=== PATIENT | male | born 1955 | race Caucasian/White ===

== ENCOUNTER 2018-09-13 11:46 | Inpatient (IN) | payer MEDICAID, OTHER ==
[~2018-09-13] VITALS: Ht 175.3 cm; Wt 88.5 kg
[2018-09-13 12:28] LABS: ALBUMIN 4.4 g/dL (3.4-5.0); ANION GAP 10 mmol/L (5-15); CALCIUM 9.2 mg/dL (8.5-10.1); CHLORIDE 103 mmol/L (98-107); CREATININE 1.43 mg/dL (0.7-1.3)
[2018-09-13] MEDS ORDERED: SODIUM CHLORIDE FLUSH 10ML SYR IVF ONE (12:30)
[2018-09-13] MEDS ORDERED: PLEASE ENTER HEIGHT AND WEIGHT MC SCH (12:30)
[2018-09-13 12:36] LABS: MEAN CORPUSCULAR HEMOGLOBIN 29.5 pg (27.5-34.5); MEAN CORPUSCULAR HGB CONC 34.1 g/dL (33.2-36.2); MEAN CORPUSCULAR VOLUME 86.3 fL (81-97); PLATELET COUNT 312 x10^3/uL (130-400); RED CELL DISTRIBUTION WIDTH 14.1 % (9.4-14.8)
[2018-09-13 12:37] LABS: BASOPHILS # (AUTO) 0.05 x10^3/uL (0-0.1); BASOPHILS % (AUTO) 0 % (0-1); EOSINOPHILS # (AUTO) 0.02 x10^3/uL (0-0.4); EOSINOPHILS % (AUTO) 0 % (1-7); LYMPHOCYTES # (AUTO) 1.44 x10^3/uL (1-3.4); LYMPHOCYTES % (AUTO) 11 % (22-44); MONOCYTES # (AUTO) 0.59 x10^3/uL (0.2-0.8); MONOCYTES % (AUTO) 5 % (2-9); NEUTROPHILS % (AUTO) 84 % (42-75)
[2018-09-13 12:38] LABS: MD NO
[2018-09-13] MEDS ORDERED: ONDANSETRON 2MG/ML, 2ML ONE (13:29)
[2018-09-13] MEDS ORDERED: MORPHINE SULFATE 4 MG/ML, 1ML ONE ×2 (13:29→15:00)
[2018-09-13] MEDS ORDERED: SODIUM CHLORIDE 0.9% 1,000 ML IV ONE (13:31)
[2018-09-13 13:38] LABS: MICROSCOPIC NOT IND
[2018-09-13] MEDS: MORPHINE SULFATE 4 MG/ML, 1ML IVPush PRN ×2 (13:40→15:03)
[2018-09-13 13:47] LABS: CULTURE INDICATED? NO
[2018-09-13] MEDS ORDERED: PRAV20TA2 PO (13:52)
[2018-09-13] MEDS ORDERED: CHOL400C PO (13:52)
[2018-09-13] MEDS ORDERED: OMEP-110 PO (13:52)
[2018-09-13] MEDS ORDERED: HYDR25TA6 PO (13:52)
[2018-09-13] MEDS ORDERED: LOSA25TA6 PO (13:52)
[2018-09-13] MEDS ORDERED: ALPR-475 PO (13:52)
[2018-09-13] MEDS ORDERED: TAMS0.4C2 PO (13:52)
[2018-09-13] MEDS ORDERED: MESA1.2T PO (13:52)
[2018-09-13] MEDS ORDERED: BUPR200T PO (13:52)
[2018-09-13] MEDS ORDERED: ONDANSETRON 2MG/ML, 2ML IVPush ONE (14:00)
[2018-09-13] MEDS ORDERED: OMNIPAQUE 350 MG/ML, 100ML BOTTLE ONE (14:15)
[2018-09-13] MEDS ORDERED: SODIUM CHLORIDE 0.9%, 500ML IVBOLUS ONE (14:30)
[2018-09-13] MEDS ORDERED: CEFTRIAXONE PMX 1GM/50ML 50 ML ONE (14:47)
[2018-09-13] MEDS ORDERED: METRONIDAZOLE PMX 500MG/100ML 100 ML ONE (15:00)
[2018-09-13] MEDS ORDERED: CEFTRIAXONE PMX 1GM/50ML 50 ML IV ONE ×2 (15:00→16:02)
[2018-09-13] MEDS ORDERED: METRONIDAZOLE PMX 500MG/100ML 100 ML IV ONE (15:30)
[2018-09-13] MEDS ORDERED: hydrALAzine 20 MG/ML, 1ML IVPush PRN (16:00)
[2018-09-13 16:25] VITALS: BP 129/83
[2018-09-13] MEDS: SODIUM CHLORIDE 0.9% 1,000 ML IV SCH ×2 (17:42→23:06)
[2018-09-13] MEDS: morphine SULFATE 10 MG/ML, 1ML IVPush PRN ×2 (17:43→20:41)
[2018-09-13 19:32] VITALS: BP 114/69
[2018-09-13] MEDS: PANTOPRAZOLE 40 MG IV IVPush SCH (20:13)
[2018-09-13] MEDS: ONDANSETRON 2MG/ML, 2ML IVPush PRN (23:06)
[2018-09-13] MEDS: METRONIDAZOLE PMX 500MG/100ML 100 ML IV SCH (23:06)
[2018-09-14] MEDS: morphine SULFATE 10 MG/ML, 1ML IVPush PRN ×2 (00:11→03:12)
[2018-09-14 02:28] VITALS: BP 108/68
[2018-09-14 04:53] LABS: BASOPHILS # (AUTO) 0.04 x10^3/uL (0-0.1); BASOPHILS % (AUTO) 0 % (0-1); EOSINOPHILS # (AUTO) 0.03 x10^3/uL (0-0.4); EOSINOPHILS % (AUTO) 0 % (1-7); LYMPHOCYTES # (AUTO) 1.29 x10^3/uL (1-3.4); LYMPHOCYTES % (AUTO) 13 % (22-44); MD NO; MEAN CORPUSCULAR HEMOGLOBIN 29.7 pg (27.5-34.5); MEAN CORPUSCULAR HGB CONC 34.6 g/dL (33.2-36.2); MEAN CORPUSCULAR VOLUME 85.9 fL (81-97); MEAN PLATELET VOLUME 6.9 fL (7.4-10.4); MONOCYTES # (AUTO) 0.75 x10^3/uL (0.2-0.8); MONOCYTES % (AUTO) 8 % (2-9); NEUTROPHILS # (AUTO) 7.65 x10^3/uL (1.8-6.8); NEUTROPHILS % (AUTO) 78 % (42-75); PLATELET COUNT 259 x10^3/uL (130-400); RED BLOOD COUNT 4.39 x10^6/uL (4.38-5.82); RED CELL DISTRIBUTION WIDTH 14.3 % (9.4-14.8)
[2018-09-14 05:08] LABS: ALBUMIN 3.3 g/dL (3.4-5.0); ANION GAP 7 mmol/L (5-15); CHLORIDE 107 mmol/L (98-107)
[2018-09-14] MEDS: ONDANSETRON 2MG/ML, 2ML IVPush PRN (05:11)
[2018-09-14 05:12] LABS: ALANINE AMINOTRANSFERASE 20 U/L (12-78); ALKALINE PHOSPHATASE 56 U/L (45-117); BILIRUBIN,TOTAL 0.8 mg/dL (0.2-1.0); CREATININE 1.27 mg/dL (0.7-1.3); TOTAL PROTEIN 6.8 g/dL (6.4-8.2)
[2018-09-14] MEDS: SODIUM CHLORIDE 0.9% 1,000 ML IV SCH ×3 (06:34→21:13)
[2018-09-14] MEDS: METRONIDAZOLE PMX 500MG/100ML 100 ML IV SCH ×3 (06:37→23:05)
[2018-09-14 07:58] VITALS: BP 117/67
[2018-09-14] MEDS ORDERED: PROMETHAZINE 25 MG/ML, 1ML IM PRN (08:30)
[2018-09-14] MEDS: PANTOPRAZOLE 40 MG IV IVPush SCH ×2 (08:45→21:13)
[2018-09-14] MEDS: LORazepam 2 MG/ML, 1ML IVPush PRN ×2 (10:01→21:13)
[2018-09-14 13:49] VITALS: BP 116/68
[2018-09-14] MEDS ORDERED: CEFTRIAXONE PMX 2GM/50ML 50 ML IV SCH (16:00)
[2018-09-14 18:45] VITALS: BP 127/73
[2018-09-15] MEDS: SODIUM CHLORIDE 0.9% 1,000 ML IV SCH ×2 (04:58→11:40)
[2018-09-15 05:00] VITALS: BP 118/57
[2018-09-15] MEDS: METRONIDAZOLE PMX 500MG/100ML 100 ML IV SCH (06:24)
[2018-09-15 06:58] VITALS: BP 128/67
[2018-09-15] MEDS: PANTOPRAZOLE 40 MG IV IVPush SCH (09:11)
[2018-09-15] MEDS ORDERED: TRAM50TA2 PO (10:31)
[2018-09-15] MEDS ORDERED: METR500T PO (10:31)
[2018-09-15] MEDS ORDERED: OXYC-302 PO (10:31)
[2018-09-15] MEDS ORDERED: POLY17PO5 PO (10:31)
[2018-09-15] MEDS ORDERED: CEFD300C37 PO (10:31)
[2018-09-15 12:12] VITALS: BP 136/72
== END 2018-09-15 12:40 | disposition home or self-care (01) | DRG 871 ==
LOC: ED 14:39 → EDIP 15:11 → 3NE 15:59 → DCLOUNGE 09-15 12:30
PROVIDERS: ADMIT Internal Medicine; ATTEND Internal Medicine
DX: A41.9 Sepsis, unspecified organism (principal); N17.0 Acute kidney failure with tubular necrosis; K57.32 Diverticulitis of large intestine without perforation or abscess without bleeding; N40.0 Benign prostatic hyperplasia without lower urinary tract symptoms; I10 Essential (primary) hypertension; E78.5 Hyperlipidemia, unspecified; E86.0 Dehydration; E78.00 Pure hypercholesterolemia, unspecified; Z88.8 Allergy status to other drugs, medicaments and biological substances; Z87.891 Personal history of nicotine dependence; Z86.010 Personal history of colon polyps; Z85.828 Personal history of other malignant neoplasm of skin; Z82.49 Family history of ischemic heart disease and other diseases of the circulatory system; Z80.8 Family history of malignant neoplasm of other organs or systems
CPT/HCPCS: 36415; 74177; 80048; 80053; 81003; 82040; 83735; 84100; 85025; 96361; 96365; 96375; 96376; 99285; G0378; J0696; J2405; J2550; Q9967; C9113; J2060; J2270; J7030; J7040

== ENCOUNTER 2018-11-23 05:53 | Inpatient (IN) | payer MEDICARE, OTHER ==
[2018-11-16 08:54] VITALS: BP 121/84
[~2018-11-23] VITALS: Ht 172.7 cm; Wt 88.0 kg
[~2018-11-23 05:53] MED LIST: ALPR-475 PO; BUPR200T PO; CEFD300C37 PO; CHOL400C PO; CIPR500T3 PO; HYDR25TA6 PO; LOSA25TA25 PO; MESA1.2T PO; METR-90 PO; METR500T PO; OMEP-110 PO; OMEP40CA6 PO; OXYC-302 PO; POLY17PO5 PO; PRAV20TA2 PO; PRAV40TA2 PO; TAMS0.4C2 PO; TRAM50TA2 PO; VITAMIN D3 PO
[2018-11-23] MEDS ORDERED: LACTATED RINGERS 1,000 ML IV SCH (06:37)
[2018-11-23] MEDS ORDERED: MIDAZOLAM 1 MG/ML, 2ML ONE (07:18)
[2018-11-23] MEDS ORDERED: FENTANYL PF 250 MCG/5ML ONE (07:18)
[2018-11-23] MEDS ORDERED: CEFOTETAN 2 GM ONE (07:23)
[2018-11-23] MEDS ORDERED: INDOCYANINE GREEN 25 MG VIAL ONE (07:30)
[2018-11-23] MEDS ORDERED: SCOPOLAMINE PATCH, 1.5MG PATCH.TD72 TD ONE ×2 (07:51→10:33)
[2018-11-23] MEDS ORDERED: ACETAMINOPHEN 500 MG TABLET PO ONE (08:00)
[2018-11-23] MEDS ORDERED: PROMETHAZINE 25 MG SUPP PR PRN (08:00)
[2018-11-23] MEDS ORDERED: MEPERIDINE/PF 25MG/0.5ML IVPush PRN (08:00)
[2018-11-23] MEDS ORDERED: hydrALAzine 20 MG/ML, 1ML IV PRN (08:00)
[2018-11-23] MEDS ORDERED: ONDANSETRON 2MG/ML, 2ML IV PRN (08:00)
[2018-11-23] MEDS ORDERED: LABETALOL 5MG/ML, 20ML IV PRN (08:00)
[2018-11-23] MEDS ORDERED: PROMETHAZINE 25 MG/ML, 1ML IM PRN ×2 (08:00)
[2018-11-23] MEDS ORDERED: HALOPERIDOL 5 MG/ML IV PRN (08:00)
[2018-11-23] MEDS ORDERED: PROMETHAZINE 12.5 MG SUPP PR PRN (08:00)
[2018-11-23] MEDS ORDERED: GABAPENTIN 300 MG CAPSULE PO ONE (08:00)
[2018-11-23] MEDS ORDERED: ONDANSETRON ODT 8 MG PO PRN (08:00)
[2018-11-23] MEDS ORDERED: PROMETHAZINE 25 MG/ML, 1ML IV PRN (08:00)
[2018-11-23] MEDS ORDERED: HYDROmorphone 2 MG/ML, 1ML IVPush PRN (08:00)
[2018-11-23] MEDS ORDERED: OXYcodone 5 MG/5 ML ORAL.SOL UDC PO PRN (08:00)
[2018-11-23] MEDS ORDERED: PHENYLEPHRINE 10 MG/ML ONE (08:07)
[2018-11-23] MEDS ORDERED: GLYCOPYRROLATE 0.2MG/1ML, 5ML ONE (09:09)
[2018-11-23] MEDS ORDERED: CEFAZOLIN 1,000 MG ONE (09:09)
[2018-11-23] MEDS ORDERED: ROCURONIUM 10MG/ML,5ML ONE (09:09)
[2018-11-23] MEDS ORDERED: DEXAMETHASONE 4 MG/ML, 1ML ONE (09:09)
[2018-11-23] MEDS ORDERED: PROPOFOL 10 MG/ML, 20ML ONE (09:09)
[2018-11-23] MEDS ORDERED: ONDANSETRON 2MG/ML, 2ML ONE (09:09)
[2018-11-23] MEDS ORDERED: NEOSTIGMINE 1 MG/ML, 10ML ONE (09:09)
[2018-11-23] MEDS ORDERED: OXYcodone 5 MG/5 ML ORAL.SOL UDC ONE (10:20)
[2018-11-23] MEDS ORDERED: FENTANYL PF 100 MCG/2ML ONE (10:27)
[2018-11-23] MEDS: FENTANYL PF 100 MCG/2ML IV PRN ×3 (10:30→10:50)
[2018-11-23] MEDS ORDERED: HALOPERIDOL 5 MG/ML ONE (10:49)
[2018-11-23 12:21] VITALS: BP 141/86
[2018-11-23] MEDS ORDERED: DEXAMETHASONE 4 MG/ML, 1ML IVPush PRN (13:30)
[2018-11-23] MEDS ORDERED: HALOPERIDOL 5 MG/ML IVPush PRN (13:30)
[2018-11-23] MEDS ORDERED: D5%-0.45NACL+KCL 20MEQ 1,000 ML IV SCH (13:30)
[2018-11-23] MEDS ORDERED: TRAZODONE 50MG TABLET PO PRN (13:30)
[2018-11-23] MEDS ORDERED: LORazepam 1MG TABLET PO PRN (13:30)
[2018-11-23] MEDS ORDERED: DIPHENHYDRAMINE 50 MG/ML, 1ML IVPush PRN (13:30)
[2018-11-23] MEDS ORDERED: SCOPOLAMINE PATCH, 1.5MG PATCH.TD72 TD PRN (13:30)
[2018-11-23] MEDS ORDERED: DIPHENHYDRAMINE 25 MG CAPSULE PO PRN (13:30)
[2018-11-23] MEDS ORDERED: CALCIUM CARBONATE 500 MG TAB.CHEW PO PRN (13:30)
[2018-11-23] MEDS: ACETAMINOPHEN 500 MG TABLET PO SCH ×2 (13:59→19:42)
[2018-11-23] MEDS: NICOTINE 21 MG/24 HR PATCH.TD24 TD SCH (14:00)
[2018-11-23] MEDS ORDERED: LORazepam 2 MG/ML, 1ML IVPush PRN (14:30)
[2018-11-23] MEDS: OXYcodone IR 5MG TABLET PO PRN ×3 (14:47→23:26)
[2018-11-23] MEDS: D5%-0.45NACL+KCL 20MEQ 1,000 ML IV SCH (15:05)
[2018-11-23] MEDS: IBUPROFEN 800 MG TABLET PO SCH ×2 (15:35→21:18)
[2018-11-23] MEDS ORDERED: HYDROmorphone 2 MG/ML, 1ML ONE ×3 (15:40→23:16)
[2018-11-23] MEDS: HYDROmorphone 1 MG/ML, 1ML IVPush PRN ×3 (15:43→23:25)
[2018-11-23 19:56] VITALS: BP 145/80
[2018-11-24 01:11] VITALS: BP 140/79
[2018-11-24] MEDS: ACETAMINOPHEN 500 MG TABLET PO SCH ×4 (01:54→20:45)
[2018-11-24 01:56] VITALS: BP 111/65
[2018-11-24] MEDS ORDERED: HYDROmorphone 2 MG/ML, 1ML ONE ×3 (02:31→22:22)
[2018-11-24] MEDS: OXYcodone IR 5MG TABLET PO PRN ×4 (02:38→20:45)
[2018-11-24] MEDS: HYDROmorphone 1 MG/ML, 1ML IVPush PRN ×3 (02:39→22:28)
[2018-11-24 03:54] LABS: ALBUMIN 3.5 g/dL (3.4-5.0); ANION GAP 7 mmol/L (5-15); CALCIUM 8.3 mg/dL (8.5-10.1); CHLORIDE 102 mmol/L (98-107); CREATININE 1.46 mg/dL (0.7-1.3)
[2018-11-24 04:42] LABS: BASOPHILS # (AUTO) 0.06 x10^3/uL (0-0.1); BASOPHILS % (AUTO) 1 % (0-1); EOSINOPHILS % (AUTO) 0 % (1-7); LYMPHOCYTES # (AUTO) 1.07 x10^3/uL (1-3.4); LYMPHOCYTES % (AUTO) 10 % (22-44); MD NO; MEAN CORPUSCULAR HEMOGLOBIN 28.8 pg (27.5-34.5); MEAN CORPUSCULAR HGB CONC 33.7 g/dL (33.2-36.2); MEAN CORPUSCULAR VOLUME 85.4 fL (81-97); MONOCYTES # (AUTO) 1.02 x10^3/uL (0.2-0.8); MONOCYTES % (AUTO) 9 % (2-9); NEUTROPHILS # (AUTO) 8.79 x10^3/uL (1.8-6.8); NEUTROPHILS % (AUTO) 80 % (42-75); PLATELET COUNT 287 x10^3/uL (130-400); RED BLOOD COUNT 4.79 x10^6/uL (4.38-5.82); RED CELL DISTRIBUTION WIDTH 14.8 % (9.4-14.8)
[2018-11-24] MEDS: OMEPRAZOLE 20 MG CAPSULE.DR PO SCH (05:54)
[2018-11-24 08:00] VITALS: BP 115/69
[2018-11-24] MEDS: D5%-0.45NACL+KCL 20MEQ 1,000 ML IV SCH ×2 (08:45→22:36)
[2018-11-24] MEDS: IBUPROFEN 800 MG TABLET PO SCH ×3 (08:51→20:45)
[2018-11-24] MEDS: TAMSULOSIN 0.4 MG CAP.ER.24H PO SCH (08:51)
[2018-11-24] MEDS: ENOXAPARIN 40 MG/0.4 ML SQ SCH (08:52)
[2018-11-24] MEDS: ONDANSETRON 2MG/ML, 2ML IV PRN ×2 (12:12→22:27)
[2018-11-24] MEDS ORDERED: D5%-0.45NACL+KCL 20MEQ 1,000 ML IV SCH (13:30)
[2018-11-24] MEDS: NICOTINE 21 MG/24 HR PATCH.TD24 TD SCH (14:24)
[2018-11-24 14:45] VITALS: BP 125/75
[2018-11-24 19:23] VITALS: BP 123/75
[2018-11-24] MEDS ORDERED: PRAVASTATIN 40 MG TABLET PO SCH (21:00)
[2018-11-25] MEDS: OXYcodone IR 5MG TABLET PO PRN ×2 (01:12→06:40)
[2018-11-25 01:16] VITALS: BP 123/74
[2018-11-25 03:44] LABS: ALBUMIN 3.2 g/dL (3.4-5.0); ANION GAP 7 mmol/L (5-15); CALCIUM 8.1 mg/dL (8.5-10.1); CHLORIDE 105 mmol/L (98-107); CREATININE 1.38 mg/dL (0.7-1.3)
[2018-11-25 03:49] LABS: BASOPHILS # (AUTO) 0.07 x10^3/uL (0-0.1); BASOPHILS % (AUTO) 1 % (0-1); EOSINOPHILS # (AUTO) 0.05 x10^3/uL (0-0.4); EOSINOPHILS % (AUTO) 1 % (1-7); LYMPHOCYTES # (AUTO) 2.91 x10^3/uL (1-3.4); LYMPHOCYTES % (AUTO) 31 % (22-44); MD NO; MEAN CORPUSCULAR HEMOGLOBIN 29.5 pg (27.5-34.5); MEAN CORPUSCULAR HGB CONC 34.3 g/dL (33.2-36.2); MEAN CORPUSCULAR VOLUME 85.9 fL (81-97); MEAN PLATELET VOLUME 7.1 fL (7.4-10.4); MONOCYTES # (AUTO) 0.74 x10^3/uL (0.2-0.8); MONOCYTES % (AUTO) 8 % (2-9); NEUTROPHILS % (AUTO) 60 % (42-75); PLATELET COUNT 259 x10^3/uL (130-400); RED BLOOD COUNT 4.25 x10^6/uL (4.38-5.82); RED CELL DISTRIBUTION WIDTH 14.6 % (9.4-14.8)
[2018-11-25] MEDS: ACETAMINOPHEN 500 MG TABLET PO SCH (03:50)
[2018-11-25] MEDS: OMEPRAZOLE 20 MG CAPSULE.DR PO SCH (06:40)
[2018-11-25 06:54] VITALS: BP 144/74
[2018-11-25] MEDS: ENOXAPARIN 40 MG/0.4 ML SQ SCH (08:00)
[2018-11-25] MEDS: IBUPROFEN 800 MG TABLET PO SCH (08:19)
[2018-11-25] MEDS: TAMSULOSIN 0.4 MG CAP.ER.24H PO SCH (08:19)
[2018-11-25] MEDS ORDERED: TRAM50TA2 PO (09:11)
== END 2018-11-25 10:20 | disposition home or self-care (01) | DRG 331 ==
LOC: ORIP 05:53 → 4NOR 12:48 → DCLOUNGE 11-25 10:09
PROVIDERS: ADMIT Surgery; ATTEND Surgery
PROC: 0DBN4ZZ Excision of Sigmoid Colon, Percutaneous Endoscopic Approach (ICD-10-PCS; 2018-11-23)
PROC: 8E0W4CZ Robotic Assisted Procedure of Trunk Region, Percutaneous Endoscopic Approach (ICD-10-PCS; 2018-11-23)
PROC: 3E0T3BZ Introduction of Anesthetic Agent into Peripheral Nerves and Plexi, Percutaneous Approach (ICD-10-PCS; 2018-11-23)
PROC: 3E0T3BZ Introduction of Anesthetic Agent into Peripheral Nerves and Plexi, Percutaneous Approach (ICD-10-PCS; 2018-11-23)
PROC: 0DBP4ZZ Excision of Rectum, Percutaneous Endoscopic Approach (ICD-10-PCS; principal; 2018-11-23 08:00)
DX: K57.32 Diverticulitis of large intestine without perforation or abscess without bleeding (principal); K21.9 Gastro-esophageal reflux disease without esophagitis; N40.0 Benign prostatic hyperplasia without lower urinary tract symptoms; F41.9 Anxiety disorder, unspecified; E78.5 Hyperlipidemia, unspecified; E03.9 Hypothyroidism, unspecified; F17.210 Nicotine dependence, cigarettes, uncomplicated; N18.9 Chronic kidney disease, unspecified; I12.9 Hypertensive chronic kidney disease with stage 1 through stage 4 chronic kidney disease, or unspecified chronic kidney disease; Z88.8 Allergy status to other drugs, medicaments and biological substances
CPT/HCPCS: 36415; 80048; 82040; 85025; 86850; 86900; 88307; C1729; G0378; J0690; J1100; J1170; J2250; J2405; J2704; J2710; J3010; J3490; J1630; J2370; J3480; J7120; Q0163